=== PATIENT | female | born 1960 | race Caucasian/White ===

== ENCOUNTER 2024-05-27 15:48 | Outpatient (CLI) | payer BC, SELFPAY ==
[2024-05-27 17:05] LABS: Basophils Percent Auto 0.3 % (0.0-3.0); Eosinophils Percent Auto 2.3 % (0.0-7.0); Hematocrit 43.8 % (33.0-51.0); Hemoglobin* 14.4 gm/dL (12.0-16.0); Immature Granulocytes Pct Auto 0.5 %; Lymphocytes Percent Auto 27.5 % (20-44); Mean Corpuscular HGB Conc 33 gm/dL (32-36); Mean Corpuscular Hemoglobin 30 pg (26-34); Mean Corpuscular Volume 90 fL (80-100); Monocytes Percent Auto 5.7 % (0.0-11.0); Neutrophils Percent Auto 63.7 % (42.0-72.0); Platelet Count* 451 K/uL (140-440); RDW Coefficient of Variation % 12.6 % (11.5-15.5); Red Blood Count 4.86 m/uL (4.00-5.20); White Blood Count* 19.39 K/uL (4.50-11.00)
[2024-05-27 17:14] LABS: Slide Review Reflex No
[2024-05-27 19:12] LABS: Albumin* 4.1 g/dL (3.3-5.0); Chloride* 94 mmol/L (96-114); Sodium* 133 mmol/L (135-149)
[2024-05-27 19:13] LABS: Potassium* 3.1 mmol/L (3.6-5.1)
[2024-05-27 19:14] LABS: Vitamin D 25 Hydroxy* 95 ng/mL (30-80)
[2024-05-27 19:15] LABS: Alanine Aminotransferase* 66 U/L (4-35); Alkaline Phosphatase* 107 U/L (40-150); Anion Gap 5 mEq/L (7-15); Aspartate Amino Transferase* 43 U/L (12-35); Bilirubin Total* 0.6 mg/dL (0.1-1.5); Blood Urea Nitrogen* 37 mg/dL (7-30); Carbon Dioxide* 34 mmol/L (20-32); Cholesterol* 152 mg/dL (90-199); Estimated Glomerular Filt Rate 12 ml/min; Glucose* 110 mg/dL (60-115); Total Protein* 6.8 g/dL (6.0-8.3); Triglycerides* 114 mg/dL (40-149)
[2024-05-27 19:16] LABS: HDL Cholesterol* 75 mg/dL (>=50); LDL Cholesterol Calculated 54 mg/dL (<100)
[2024-05-27 19:58] LABS: Calcium* 17.7 mg/dL (8.4-10.6)
[2024-05-27 20:35] LABS: Erythrocyte SedimentationRate* 16 mm/hr (2-20)
== END 2024-05-27 15:49 | disposition home or self-care (01) ==
LOC: LAB 15:56
PROVIDERS: PCP Family Medicine; Visit Provider Family Medicine
DX: Z13.220 Encounter for screening for lipoid disorders (principal); E55.9 Vitamin D deficiency, unspecified; F43.9 Reaction to severe stress, unspecified; R53.83 Other fatigue; R68.2 Dry mouth, unspecified; N39.9 Disorder of urinary system, unspecified
CPT/HCPCS: 36415; 80050; 80053; 80061; 82306; 84443; 85025; 85651

== ENCOUNTER 2024-06-07 14:54 | Outpatient (CLI) | payer BC, SELFPAY ==
[2024-06-07 16:12] LABS: Basophils Percent Auto 0.6 % (0.0-3.0); Eosinophils Percent Auto 3.8 % (0.0-7.0); Hematocrit 38.6 % (33.0-51.0); Hemoglobin* 12.7 gm/dL (12.0-16.0); Immature Granulocytes Pct Auto 0.2 %; Lymphocytes Percent Auto 41.9 % (20-44); Mean Corpuscular HGB Conc 33 gm/dL (32-36); Mean Corpuscular Hemoglobin 30 pg (26-34); Mean Corpuscular Volume 90 fL (80-100); Neutrophils Percent Auto 47.5 % (42.0-72.0); Platelet Count* 323 K/uL (140-440); RDW Coefficient of Variation % 13.7 % (11.5-15.5); Red Blood Count 4.28 m/uL (4.00-5.20); White Blood Count* 12.26 K/uL (4.50-11.00)
[2024-06-07 16:18] LABS: Slide Review Reflex No
[2024-06-07 16:25] LABS: Albumin* 3.7 g/dL (3.3-5.0); Chloride* 106 mmol/L (96-114); Potassium* 4.6 mmol/L (3.6-5.1); Sodium* 135 mmol/L (135-149)
[2024-06-07 16:27] LABS: Creatinine* 1.2 mg/dL (0.5-1.5); Estimated Glomerular Filt Rate 51 ml/min
[2024-06-07 16:28] LABS: Alanine Aminotransferase* 40 U/L (4-35); Alkaline Phosphatase* 363 U/L (40-150); Anion Gap 7 mEq/L (7-15); Aspartate Amino Transferase* 26 U/L (12-35); Bilirubin Total* 0.2 mg/dL (0.1-1.5); Blood Urea Nitrogen* 12 mg/dL (7-30); Calcium* 8.7 mg/dL (8.4-10.6); Carbon Dioxide* 22 mmol/L (20-32); Glucose* 131 mg/dL (60-115); Total Protein* 5.8 g/dL (6.0-8.3)
[2024-06-07 16:39] LABS: NT Pro B Type NatriureticPept* 76 pg/mL
[2024-06-07 18:05] LABS: Erythrocyte SedimentationRate* 22 mm/hr (2-20)
== END 2024-06-07 14:55 | disposition home or self-care (01) ==
LOC: LAB 14:58
PROVIDERS: PCP Family Medicine; Visit Provider Family Medicine
DX: D86.9 Sarcoidosis, unspecified (principal)
CPT/HCPCS: 36415; 80053; 83880; 85025; 85651